=== PATIENT | female | born 1960 ===

== ENCOUNTER → 2020-12-07 | Outpatient (CLI) | payer OTHER ==
[2020-12-07 09:44] LABS: Basophils # (auto) 0 10 ^3/uL (0-0.2); Basophils % (auto) 1.3 % (0.0-2.0); Eosinophils # (auto) 0.2 10 ^3/uL (0-0.8); Eosinophils % (auto) 7.2 % (0.0-7.0); Hematocrit 39.5 % (36.0-46.0); Hemoglobin 13.6 g/dL (12.2-16.2); Lymphocytes # (auto) 1.1 10 ^3/uL (0.4-5.4); Lymphocytes % (auto) 37.9 % (10.0-50.0); Mean Corpuscular Hemoglobin 32.4 pg (28.0-32.0); Mean Corpuscular Hgb Conc. 34.4 g/dL (32.0-36.0); Mean Corpuscular Volume 94.2 fL (80.0-100.0); Monocytes # (auto) 0.2 10 ^3/uL (0-1.3); Monocytes % (auto) 6.8 % (0.0-12.0); Neutrophils # (auto) 1.4 10 ^3/uL (1.6-8.6); Neutrophils % (auto) 46.8 % (37.0-80.0); Platelet Count (auto) 255 10^3/uL (140-450); Red Blood Cells 4.19 10^6/uL (4.0-5.20); Red Cell Distribution Width 12.6 % (11.8-14.3)
[2020-12-07 10:42] LABS: Potassium 4.4 mmol/L (3.5-5.1)
[2020-12-07 10:51] LABS: Albumin 3.9 g/dL (3.4-5.0); BUN/Creatinine Ratio 18.8; Bilirubin, Total 0.7 mg/dL (0.2-1.0); Calcium 8.6 mg/dL (8.5-10.1); Total Protein 7.7 g/dL (6.4-8.2)
== END | disposition home or self-care (01) ==
LOC: LAB 09:30
PROVIDERS: ATTEND Internal Medicine
DX: Z00.00 Encounter for general adult medical examination without abnormal findings (principal); I10 Essential (primary) hypertension; Z12.11 Encounter for screening for malignant neoplasm of colon
CPT/HCPCS: 36415; 80053; 80061; 82274; 84443; 85025

== ENCOUNTER → 2024-11-30 | Outpatient (CLI) | payer OTHER ==
[2024-11-30 10:19] LABS: Urine Bacteria None Seen /hpf (None Seen)
[2024-11-30 10:48] LABS: Alanine Aminotransferase 19 U/L (7-40); Albumin 4.4 g/dL (3.2-4.8); Alkaline Phosphatase 84 U/L (46-116); Anion Gap 5 (5-15); Aspartate Aminotransferase 15 U/L (13-40); BUN/Creatinine Ratio 11.6 (10.0-20.0); Blood Urea Nitrogen 11 mg/dL (9-23); Calcium 9.7 mg/dL (8.7-10.4); Carbon Dioxide 29 mmol/L (20-31); Chloride 106 mmol/L (98-107); Cholesterol 176 mg/dL (< 200); Glucose 94 mg/dL (74-106); HDL Cholesterol 57 mg/dL (40-59); Potassium 4.3 mmol/L (3.5-5.1); Sodium 140 mmol/L (136-145); Total Protein 6.7 g/dL (5.7-8.2); Triglycerides 121 mg/dL (< 150)
[2024-11-30 10:52] LABS: LDL Cholesterol 106 mg/dL (< 100)
[2024-11-30 11:06] LABS: Uric Acid 3.9 mg/dL (3.1-7.8)
[2024-11-30 11:19] LABS: Urine Blood Negative /uL (Negative); Urine Clarity Clear (Clear); Urine Color Light-Yellow (Yellow); Urine Protein, UAD Negative (Negative); Urine Squamous Epithelial Cell None Seen /hpf (<5); Urine Urobilinogen Normal (Negative)
[2024-11-30 11:42] LABS: Folate (Folic Acid) 34.53 ng/mL (>5.38)
[2024-11-30 11:44] LABS: Erythrocyte Sedimentation Rate 7 mm/hr (0-20)
[2024-11-30 12:08] LABS: Urine WBC < 1 /HPF (0-5)
== END | disposition home or self-care (01) ==
LOC: LAB 10:04
PROVIDERS: ATTEND Internal Medicine
DX: D51.9 Vitamin B12 deficiency anemia, unspecified (principal); E61.2 Magnesium deficiency; E55.9 Vitamin D deficiency, unspecified; E78.49 Other hyperlipidemia; E79.0 Hyperuricemia without signs of inflammatory arthritis and tophaceous disease; R94.6 Abnormal results of thyroid function studies; R82.79 Other abnormal findings on microbiological examination of urine; R68.89 Other general symptoms and signs; R73.09 Other abnormal glucose; R82.998 Other abnormal findings in urine
CPT/HCPCS: 36415; 80053; 80061; 81001; 82306; 82607; 82746; 83036; 84443; 84550; 85652; 87086

== ENCOUNTER → 2025-05-11 | Outpatient (CLI) | payer OTHER ==
[2025-05-11 10:52] LABS: Hematocrit 39.3 % (36.0-46.0); Hemoglobin 13.5 g/dL (12.2-16.2); Mean Corpuscular Hemoglobin 32.7 pg (28.0-32.0); Mean Corpuscular Volume 95.3 fL (80.0-100.0); Nucleated Red Blood Cells % 0.0 %
[2025-05-11 10:58] LABS: Urine Protein, UAD Negative (Negative)
[2025-05-11 11:33] LABS: Alanine Aminotransferase 16 U/L (7-40); Albumin 4.3 g/dL (3.2-4.8); Alkaline Phosphatase 77 U/L (46-116); Anion Gap 6 (5-15); BUN/Creatinine Ratio 14.0 (10.0-20.0); Bilirubin, Total 1.1 mg/dL (0.2-1.0); Blood Urea Nitrogen 14 mg/dL (9-23); Calcium 9.7 mg/dL (8.7-10.4); Carbon Dioxide 31 mmol/L (20-31); Chloride 107 mmol/L (98-107); Cholesterol 169 mg/dL (< 200); Glucose 96 mg/dL (74-106); Potassium 4.6 mmol/L (3.5-5.1); Sodium 144 mmol/L (136-145); Total Protein 6.3 g/dL (5.7-8.2); Triglycerides 71 mg/dL (< 150)
[2025-05-11 11:35] LABS: HDL Cholesterol 62 mg/dL (40-59)
[2025-05-11 11:47] LABS: Uric Acid 4.9 mg/dL (3.1-7.8)
== END | disposition home or self-care (01) ==
LOC: LAB 10:05
PROVIDERS: ATTEND Internal Medicine
DX: E78.49 Other hyperlipidemia (principal); E61.2 Magnesium deficiency; E79.0 Hyperuricemia without signs of inflammatory arthritis and tophaceous disease; R68.89 Other general symptoms and signs; E55.9 Vitamin D deficiency, unspecified; D51.9 Vitamin B12 deficiency anemia, unspecified; R82.79 Other abnormal findings on microbiological examination of urine; R82.998 Other abnormal findings in urine; R94.6 Abnormal results of thyroid function studies; R73.09 Other abnormal glucose
CPT/HCPCS: 36415; 80053; 80061; 81001; 82306; 82607; 82746; 83036; 84443; 84550; 85025; 87086